=== PATIENT | male | born 1980 | race Caucasian/White ===

== ENCOUNTER 2025-01-08 04:56 | Emergency (ER) | payer MEDICAID ==
[~2025-01-08] VITALS: Ht 182.9 cm; Wt 84.0 kg
[2025-01-08 05:05] VITALS: BP 104/72; TEMP 36.8; O2SAT 97
[2025-01-08 05:09] VITALS: PULSE 104; RESP 20; O2SAT 97
== END 2025-01-08 08:09 | disposition left against medical advice (07) ==
LOC: EDBD 05:38 → ER 05:38
DX: R06.02 Shortness of breath (principal); R51.9 Headache, unspecified; J45.909 Unspecified asthma, uncomplicated; Z53.21 Procedure and treatment not carried out due to patient leaving prior to being seen by health care provider